=== PATIENT | female | born 1945 | race Caucasian/White ===

== ENCOUNTER 2017-10-08 13:52 | Inpatient (IN) ==
[2017-10-08] MEDS ORDERED: rOPINIRole 1 MG TABLET PO PRN (22:06)
[2017-10-08] MEDS: rOPINIRole 1 MG TABLET PO SCH (22:42)
[2017-10-09] MEDS: Acetaminophen 325 MG TABLET PO PRN (00:16)
[2017-10-09 05:58] LABS: Prothrombin Time 11.3 Seconds (9.4-12.1)
[2017-10-09 05:59] LABS: Basophils % 0.7 %; Eosinophils # 0.1 K/mcL (0.0-0.6); Hematocrit 44.1 % (35.3-44.9); Hemoglobin 14.6 g/dL (11.5-15.4); Immature Granulocytes % 0.2 % (0-4); Lymphocytes # 2.1 K/mcL (0.6-4.6); Mean Corpuscular HGB Conc 33.1 g/dL (31.6-35.5); Mean Corpuscular Hemoglobin 30.3 pg (28.0-33.3); Mean Corpuscular Volume 91.5 fL (83.0-100.0); Mean Platelet Volume 10.3 fL (9.4-12.4); Monocytes # 0.3 K/mcL (0.0-1.3); Monocytes % 7.4 %; Neutrophils # 1.8 K/mcL (1.6-8.9); Platelet Count 197 K/mcL (140-400); Red Blood Count 4.82 M/mcL (3.82-4.97); Red Cell Distribution Width 13.4 % (11.5-14.5); Segmented Neutrophils % 40.7 %
[2017-10-09 06:01] LABS: Activated Partial Thrombo Time 38.8 Seconds (26.0-36.0)
[2017-10-09 06:09] LABS: BUN/Creatinine Ratio 16 (6-26); Blood Urea Nitrogen 14 mg/dL (8-23); Calcium 9.3 mg/dL (8.6-10.3); Carbon Dioxide 30 mEq/L (23-29); Chloride 104 mEq/L (98-107); Glucose 101 mg/dL (70-105); Osmolality,Calculated 287 (280-300); Potassium 4.9 mEq/L (3.5-5.1); Sodium 138 mEq/L (136-145); eGFR For African Americans > 60 (> 60); eGFR For Non-African Americans > 60 (> 60)
[2017-10-09] MEDS: *HR* Heparin 5,000 UNIT/ML VIAL SQ SCH ×2 (06:13→16:46)
[2017-10-09] MEDS: Aspirin Enteric Coated 81 MG Tablet PO SCH (08:26)
[2017-10-09] MEDS: Metoprolol XL (24 HR) Succ 25 MG TAB.ER.24H PO SCH (08:26)
[2017-10-09] MEDS: Lisinopril 20 MG TABLET PO SCH (08:26)
--- NOTE | 2017-10-09 11:04 | Internal Med History&Physical ---
Date of Encounter: 10/09/17 Time of Encounter: 11:02 Assessment and Plan (1) CVA (cerebral vascular accident) Current visit: Yes Status: Acute slight left sided weakness. no new neurodeficits. PT/OT/ST to eval and treat. will follow progress. continue ASA and statin. f/u with neuro as scheduled. Qualifiers: CVA mechanism: thrombosis Precerebral and cerebral artery: middle cerebral artery Laterality of affected vessel: right Qualified Code(s): I63.311 - Cerebral infarction due to thrombosis of right middle cerebral artery (2) Hypothyroidism Current visit: Yes Status: Chronic stable. continue synthroid. Qualifiers: Hypothyroidism type: acquired Qualified Code(s): E03.9 - Hypothyroidism, unspecified (3) Hypertension Current visit: Yes Status: Chronic controlled with current meds. monitor BP. Qualifiers: Hypertension type: essential hypertension Qualified Code(s): I10 - Essential (primary) hypertension Internal Medicine - H&P: HPI Admitted From: Intrahospital Transfer Plans for Post Hospital Care: Home History of present illness: Ms. Vila is a 72 year old female admitted to inpatient rehab unit from [facility] s/p Right basal ganglia lacunar infarct. presented with left sided weakness, slurred speechand facial droop. has been improving and remains with slight left sided weakness and can notice speech slurrign when fatigue. denies TORRES, fever, chills, NVD, SOB or chest pain. ambulating in hallway with PT with walker. 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 to follow up with neuro interventionalist. past medical history includes: HTN, hypothyroidism and bladder cancer. Past Med Surg Social Fam HX - Past Medical History Medical history: cancer, hypertension, thyroid disease Additional medical history: cancer of bladder. anxiety. hemorrhoids. ibs. hypothyroidism Psychiatric history: anxiety - Past Surgical History Surgical History: hysterectomy Additional surgical history: removal carcinoma bladder - Social History Smoking Status: Never smoker Smokeless Tobacco Status: No Alcohol use: none Drug use: none - Family History Father Living Status: Age at : 68 Cause of : Prostate Cancer Hx Family Cardiac Disorders: Yes Hx Family Respiratory Disorders: No Hx Family Cancer: Yes Hx Family Endocrine Disorder: No Internal Medicine - H&P: Meds Aspirin Enteric Coated [Aspirin EC] 81 mg PO DAILY 10/06/17 [History] Levothyroxine [Synthroid] 50 mcg PO 0630 10/06/17 [History] Meclizine [Antivert] 12.5 mg PO TID PRN 10/06/17 [History] Metoprolol Succinate [Toprol Xl] 25 mg PO DAILY 10/06/17 [History] Paroxetine [Paxil] 20 mg PO DAILY 10/06/17 [History] rOPINIRole [Requip] 1 - 2 mg PO HS PRN 10/06/17 [History] Atorvastatin Calcium [Lipitor] 80 mg PO HS #30 tab 10/08/17 [Rx] Heparin 5,000 unit SQ Q12HCO vial 10/08/17 [Rx] Lisinopril [Zestril] 20 mg PO DAILY tablet 10/08/17 [Rx] 3 Allergy/AdvReac Type Severity Reaction Status Date / Time latex Allergy Hives Verified 10/06/17 13:01 quinidine Allergy Anaphylaxis Verified 10/06/17 13:01 All Systems PM: A 10-system review of systems was performed and is negative for pertinent findings except as documented above in the HPI. - Constitutional Constitutional: no chills, no fever(s), no night sweats - EENT Eyes: no change in vision, no discharge, no pain, no photophobia Ears: no ear discharge, no ear pain, no tinnitus Nose, mouth and throat: no dysphagia, no nasal discharge, no neck pain, no sore throat - Cardiovascular Cardiovascular ROS IM: no chest pain, no diaphoresis, no dyspnea, no lightheadedness, no palpitations, no syncope - Respiratory Respiratory: no cough, no dyspnea, no wheezing, no excessive phlegm production - Gastrointestinal Gastrointestinal: no abdominal pain, no diarrhea, no hematemesis, no hematochezia, no melena, no nausea, no vomiting - Genitourinary Genitourinary: no change in urinary stream, no dysuria, no flank pain, no hematuria - Musculoskeletal Musculoskeletal ROS IM: no numbness, no tingling - Integumentary Integumentary IM: no rash, no unusual bruising - Neurological Neurological ROS: no confusion, no convulsions, no focal weakness, no numbness, no tingling, no tremor(s) - Hematologic/Lymphatic Hematologic/Lymphatic: no easy bruising - Constitutional Vitals: Temp Pulse Resp BP Pulse Ox 97.4 F L 60 16 154/78 98 10/09/17 07:16 10/09/17 08:25 10/09/17 07:16 10/09/17 07:16 10/09/17 07:16 General appearance: Present: cooperative, A&O X 3, no acute distress, answers questions appropriately - Head Head exam: Present: atraumatic, normocephalic - Eye Eye exam: Present: PERRL, conjuntiva pink, sclera anicteric Pupils: Present: PERRL - Neck Neck exam general surgery: Present: supple, trachea midline. Absent: lymphadenopathy - Respiratory Respiratory exam: Present: CTAB. Absent: accessory muscle use, rales, rhonchi, wheezes - Cardiovascular Cardiovascular exam: Present: RRR, +S1, +S2. Absent: diastolic murmur, gallop, rubs, systolic murmur - GI/Abdominal GI/Abdominal exam: Present: normal bowel sounds, soft, no peritoneal signs. Absent: distended, tenderness - Extremities Exam Extremities exam: Present: warm, radial pulses palpable and symmetrical. Absent : calf tenderness, cyanotic, pedal edema Additional comments: slight left sided weakness. strength 4/5 both upper and lower left extremitites. - Neurological Exam Neurological exam: Present: CN II-XII intact, oriented X3, no focal deficits. Absent: pronater drift, facial droop, speech deficit - Skin Skin exam: Present: dry, intact Internal Med - H&P Results - Labs CBC & Chem 7: 10/09/17 05:40 10/09/17 05:40 Labs: Short CBC 10/09/17 Range/Units 05:40 WBC 4.4 (4.3-11.1) K/mcL Hgb 14.6 (11.5-15.4) g/dL Hct 44.1 (35.3-44.9) % Plt Count 197 (140-400) K/mcL Neutrophils # 1.8 (1.6-8.9) K/mcL BMP 10/09/17 05:40 Sodium 138 Potassium 4.9 Chloride 104 Carbon Dioxide 30 H BUN 14 Creatinine 0.86 Glucose 101 Calcium 9.3
[2017-10-09] MEDS: rOPINIRole 1 MG TABLET PO SCH (20:57)
[2017-10-10] MEDS: *HR* Heparin 5,000 UNIT/ML VIAL SQ SCH ×2 (06:23→16:16)
[2017-10-10] MEDS: Metoprolol XL (24 HR) Succ 25 MG TAB.ER.24H PO SCH (07:58)
[2017-10-10] MEDS: Lisinopril 20 MG TABLET PO SCH (07:58)
[2017-10-10] MEDS: Aspirin Enteric Coated 81 MG Tablet PO SCH (07:58)
--- NOTE | 2017-10-10 11:51 | Internal Med Progress Note ---
Date of Encounter: 10/10/17 Time of Encounter: 11:49 - Assessment and plan (1) CVA (cerebral vascular accident) Current Visit: Yes Status: Acute Assessment and plan: Improving. No new neurological deficits. Continue PT, ST, OT. Will follow progress. 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 Qualifiers: Hypothyroidism type: acquired Qualified Code(s): E03.9 - Hypothyroidism, unspecified (3) Hypertension Current Visit: Yes Status: Chronic Assessment and plan: Controlled with current medication. Monitor blood pressure. Qualifiers: Hypertension type: essential hypertension Qualified Code(s): I10 - Essential (primary) hypertension - Time Spent With Patient less than 15 minutes - Subjective Interval history: Participating well with therapy. Ambulating with Walker with standby assist with physical therapy in hallway. States only has left-sided weakness when fatigue. Denies any new complaints. Denies pain, fever, chills, nausea, vomitting, diarrhea, shortness of breath or chest pain. Maintaining appetite and hydration. - Constitutional Vitals: Temp Pulse Resp BP Pulse Ox 98.5 F 59 16 140/82 96 10/10/17 07:35 10/10/17 07:35 10/10/17 07:35 10/10/17 07:35 10/10/17 07:35 General appearance: Present: cooperative, A&O X 3, no acute distress, answers questions appropriately - Head Head exam: Present: atraumatic, normocephalic - Eye Eye exam: Present: PERRL, conjuntiva pink, sclera anicteric Pupils: Present: PERRL - Neck Neck exam general surgery: Present: supple, trachea midline. Absent: lymphadenopathy - Respiratory Respiratory exam: Present: CTAB. Absent: accessory muscle use, rales, rhonchi, wheezes - Cardiovascular Cardiovascular exam: Present: RRR, +S1, +S2. Absent: diastolic murmur, gallop, rubs, systolic murmur - GI/Abdominal GI/Abdominal exam: Present: normal bowel sounds, soft, no peritoneal signs. Absent: distended, tenderness - Extremities Exam Extremities exam: Present: warm, radial pulses palpable and symmetrical. Absent : calf tenderness, cyanotic, pedal edema - Neurological Exam Neurological exam: Present: CN II-XII intact, oriented X3, no focal deficits. Absent: pronater drift, facial droop, speech deficit - Skin Skin exam: Present: dry, intact Internal Medicine: Result - Labs CBC & Chem 7: 10/09/17 05:40 10/09/17 05:40 - ABG Interpretation ABG results: PT/INR, D-dimer PT 11.3 Seconds (9.4-12.1) 10/09/17 05:40 Consult Discharge Plan - Plan Referrals: Wiley Andres MD [Primary Care Provider] - Forrest Wallis MD [Partnered Physician] - (Neurologist. Web request made.)
[2017-10-10] MEDS: rOPINIRole 1 MG TABLET PO SCH (21:10)
[2017-10-11] MEDS: *HR* Heparin 5,000 UNIT/ML VIAL SQ SCH ×2 (05:41→19:59)
[2017-10-11] MEDS: Lisinopril 20 MG TABLET PO SCH (08:15)
[2017-10-11] MEDS: Aspirin Enteric Coated 81 MG Tablet PO SCH (08:15)
[2017-10-11] MEDS: Metoprolol XL (24 HR) Succ 25 MG TAB.ER.24H PO SCH (08:16)
[2017-10-11] MEDS: Acetaminophen 325 MG TABLET PO PRN (08:16)
--- NOTE | 2017-10-11 13:27 | Internal Med Progress Note ---
Date of Encounter: 10/11/17 Time of Encounter: 13:25 - Assessment and plan (1) CVA (cerebral vascular accident) Current Visit: Yes Status: Acute Assessment and plan: No acute issues. Neuro exam stable with patient stating that her decreased sensitivity she had to her tongue has improved. Continued slight left hemiparesis. Will continue with PT/OT. 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 Continue with current medications. Qualifiers: Hypertension type: essential hypertension Qualified Code(s): I10 - Essential (primary) hypertension - Time Spent With Patient less than 15 minutes - Subjective Interval history: Patient appears relaxed and denies any discomforts or SOB. Denies any acute neuro deficits and states that she feels that she has been having less tingling/ numbness noted to the left side of her tongue. States PT/OT has been progressing well. Denies any difficulty swallowing. - Constitutional Vitals: Temp Pulse Resp BP Pulse Ox 98.0 F 55 16 148/75 97 10/11/17 06:49 10/11/17 06:49 10/11/17 06:49 10/11/17 06:49 10/11/17 06:49 General appearance: Present: cooperative, A&O X 3, no acute distress, answers questions appropriately - Head Head exam: Present: atraumatic, normocephalic - Eye Eye exam: Present: PERRL, conjuntiva pink, sclera anicteric Pupils: Present: PERRL - Neck Neck exam general surgery: Present: supple, trachea midline. Absent: lymphadenopathy - Respiratory Respiratory exam: Present: CTAB. Absent: accessory muscle use, rales, rhonchi, wheezes - Cardiovascular Cardiovascular exam: Present: RRR, +S1, +S2. Absent: diastolic murmur, gallop, rubs, systolic murmur - GI/Abdominal GI/Abdominal exam: Present: normal bowel sounds, soft, no peritoneal signs. Absent: distended, tenderness - Extremities Exam Extremities exam: Present: warm, radial pulses palpable and symmetrical. Absent : calf tenderness, cyanotic, pedal edema - Neurological Exam Neurological exam: Present: CN II-XII intact, oriented X3, no focal deficits. Absent: pronater drift, facial droop, speech deficit Additional comments: slight left hemiparesis with LE +4/5 and RE 5/5. No other focal deficits noted. - Skin Skin exam: Present: dry, intact Internal Medicine: Result - Labs CBC & Chem 7: 10/09/17 05:40 10/09/17 05:40 - ABG Interpretation ABG results: PT/INR, D-dimer PT 11.3 Seconds (9.4-12.1) 10/09/17 05:40 Consult Discharge Plan - Plan Referrals: Wiley Andres MD [Primary Care Provider] - Forrest Wallis MD [Partnered Physician] - (Neurologist. Web request made.)
[2017-10-11] MEDS: rOPINIRole 1 MG TABLET PO SCH (20:02)
[2017-10-12] MEDS: *HR* Heparin 5,000 UNIT/ML VIAL SQ SCH ×2 (05:42→17:17)
[2017-10-12] MEDS: Acetaminophen 325 MG TABLET PO PRN (08:31)
[2017-10-12] MEDS: Metoprolol XL (24 HR) Succ 25 MG TAB.ER.24H PO SCH (08:32)
[2017-10-12] MEDS: Aspirin Enteric Coated 81 MG Tablet PO SCH (08:32)
[2017-10-12] MEDS: Lisinopril 20 MG TABLET PO SCH (08:32)
--- NOTE | 2017-10-12 16:02 | Internal Med Progress Note ---
Date of Encounter: 10/12/17 Time of Encounter: 15:57 - Assessment and plan (1) CVA (cerebral vascular accident) Current Visit: Yes Status: Acute Assessment and plan: Elevated blood pressure today; on repeat was normal Continue baby aspirin PT/OT Qualifiers: CVA mechanism: thrombosis Precerebral and cerebral artery: middle cerebral artery Laterality of affected vessel: right Qualified Code(s): I63.311 - Cerebral infarction due to thrombosis of right middle cerebral artery (2) Anxiety and depression Current Visit: Yes Status: Acute Assessment and plan: Patient on Paxil Described ongoing nervousness during the day; possibly confusing this with restless leg (3) Restless leg syndrome Current Visit: Yes Status: Acute Assessment and plan: Patient on Requip at 1 mg before bedtime Patient also has as needed Requip; this was discontinued; discussed with patient (4) Hypothyroidism Current Visit: Yes Status: Chronic Assessment and plan: Continue levothyroxine Qualifiers: Hypothyroidism type: acquired Qualified Code(s): E03.9 - Hypothyroidism, unspecified (5) Hypertension Current Visit: Yes Status: Chronic Assessment and plan: Controlled; has elevated morning blood pressure will continue to monitor for now If elevated still; suggest to increase lisinopril giving low heart rate Qualifiers: Hypertension type: essential hypertension Qualified Code(s): I10 - Essential (primary) hypertension (6) Hyperlipidemia Current Visit: No Status: Chronic Assessment and plan: Continue statins Qualifiers: Hyperlipidemia type: mixed hyperlipidemia Qualified Code(s): E78.2 - Mixed hyperlipidemia - Time Spent With Patient 25 - 35 minutes - Subjective Interval history: No acute events per nursing Patient is laying comfortably in bed. Denied any chest pains or shortness of breath. Described overall fatigue and attributed that to working with physical therapy. Denied any pain. Appetite and bowel movements okay - Constitutional Vitals: Temp Pulse Resp BP Pulse Ox 97.6 F 99 16 127/82 98 10/12/17 11:49 10/12/17 11:49 10/12/17 11:49 10/12/17 11:49 10/12/17 11:49 General appearance: Present: cooperative, A&O X 3, no acute distress, answers questions appropriately - Head Head exam: Present: atraumatic - ENT ENT exam: Present: normal exam - Neck Neck exam general surgery: Present: full ROM - Respiratory Respiratory exam: Present: CTAB. Absent: rhonchi, stridor, wheezes - Cardiovascular Cardiovascular exam: Present: RRR, +S1, +S2. Absent: irregular rhythm, JVD - GI/Abdominal GI/Abdominal exam: Present: soft. Absent: firm, guarding - Extremities Exam Extremities exam: Absent: pedal edema, tenderness, warm - Psychiatric Psychiatric exam: Present: normal affect, normal mood. Absent: agitated, anxious, depressed Internal Medicine: Result - Labs CBC & Chem 7: 10/09/17 05:40 10/09/17 05:40 - ABG Interpretation ABG results: PT/INR, D-dimer PT 11.3 Seconds (9.4-12.1) 10/09/17 05:40 Consult Discharge Plan - Plan Referrals: Wiley Andres MD [Primary Care Provider] - Forrest Wallis MD [Partnered Physician] - (Neurologist. Web request made.)
[2017-10-12] MEDS ORDERED: Azelastine 0.1% Nasal Spray 30 ML BOTTLE NS SCH (21:00)
[2017-10-12] MEDS: rOPINIRole 1 MG TABLET PO SCH (21:16)
[2017-10-13] MEDS: *HR* Heparin 5,000 UNIT/ML VIAL SQ SCH ×2 (06:52→17:57)
[2017-10-13] MEDS: Aspirin Enteric Coated 81 MG Tablet PO SCH (08:08)
[2017-10-13] MEDS: Metoprolol XL (24 HR) Succ 25 MG TAB.ER.24H PO SCH (08:09)
[2017-10-13] MEDS: Lisinopril 20 MG TABLET PO SCH (08:09)
--- NOTE | 2017-10-13 14:18 | Internal Med Progress Note ---
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 (2) Anxiety and depression Current Visit: Yes Status: Acute Assessment and plan: Patient on Paxil Described ongoing nervousness during the day; possibly confusing this with restless leg (3) Restless leg syndrome Current Visit: Yes Status: Acute Assessment and plan: Patient on Requip at 1 mg before bedtime PRN Requip was discontinued on 10/12/2017; discussed with the patient and she is in agreement (4) Hypothyroidism Current Visit: Yes Status: Chronic Assessment and plan: Continue levothyroxine Qualifiers: Hypothyroidism type: acquired Qualified Code(s): E03.9 - Hypothyroidism, unspecified (5) Hypertension Current Visit: Yes Status: Chronic Assessment and plan: Controlled; Continue lisinopril as well as Toprol Qualifiers: Hypertension type: essential hypertension Qualified Code(s): I10 - Essential (primary) hypertension (6) Hyperlipidemia Current Visit: No Status: Chronic Assessment and plan: Continue statins Qualifiers: Hyperlipidemia type: mixed hyperlipidemia Qualified Code(s): E78.2 - Mixed hyperlipidemia - Time Spent With Patient 25 - 35 minutes - Subjective Interval history: No acute events per nursing Patient is laying comfortably in bed. Denied any chest pains or shortness of breath. Fatigue improved from yesterday Appetite okay - Constitutional Vitals: Temp Pulse Resp BP Pulse Ox 97.8 F 60 16 143/66 96 10/13/17 07:00 10/13/17 07:00 10/13/17 07:00 10/13/17 07:00 10/13/17 07:00 General appearance: Present: cooperative, A&O X 3, no acute distress, answers questions appropriately - Head Head exam: Present: atraumatic, normocephalic - Eye Eye exam: Present: PERRL, conjuntiva pink, sclera anicteric Pupils: Present: PERRL - Neck Neck exam general surgery: Present: supple, trachea midline. Absent: lymphadenopathy - Respiratory Respiratory exam: Present: CTAB. Absent: accessory muscle use, rales, rhonchi, wheezes - Cardiovascular Cardiovascular exam: Present: RRR, +S1, +S2. Absent: diastolic murmur, gallop, rubs, systolic murmur - GI/Abdominal GI/Abdominal exam: Present: normal bowel sounds, soft, no peritoneal signs. Absent: distended, tenderness - Extremities Exam Extremities exam: Present: warm, radial pulses palpable and symmetrical. Absent : calf tenderness, cyanotic, pedal edema - Neurological Exam Neurological exam: Present: CN II-XII intact, oriented X3, no focal deficits. Absent: pronater drift, facial droop, speech deficit - Skin Skin exam: Present: dry, intact Internal Medicine: Result - Labs CBC & Chem 7: 10/09/17 05:40 10/09/17 05:40 - ABG Interpretation ABG results: PT/INR, D-dimer PT 11.3 Seconds (9.4-12.1) 10/09/17 05:40 Consult Discharge Plan - Plan Referrals: Wiley Andres MD [Primary Care Provider] - Forrest Wallis MD [Partnered Physician] - (Neurologist. Web request made.)
[2017-10-13] MEDS: rOPINIRole 1 MG TABLET PO SCH (20:54)
[2017-10-14] MEDS: *HR* Heparin 5,000 UNIT/ML VIAL SQ SCH ×2 (05:24→20:14)
[2017-10-14 05:51] LABS: Basophils # 0.1 K/mcL (0.0-0.2); Basophils % 0.7 %; Eosinophils # 0.2 K/mcL (0.0-0.6); Eosinophils % 3.2 %; Hematocrit 42.4 % (35.3-44.9); Immature Granulocytes % 0.1 % (0-4); Lymphocytes # 2.9 K/mcL (0.6-4.6); Lymphocytes % 41.5 %; Mean Corpuscular Hemoglobin 30.2 pg (28.0-33.3); Mean Corpuscular Volume 91.6 fL (83.0-100.0); Mean Platelet Volume 10.7 fL (9.4-12.4); Monocytes # 0.5 K/mcL (0.0-1.3); Monocytes % 7.2 %; Neutrophils # 3.3 K/mcL (1.6-8.9); Platelet Count 192 K/mcL (140-400); Red Blood Count 4.63 M/mcL (3.82-4.97); Red Cell Distribution Width 13.4 % (11.5-14.5); Segmented Neutrophils % 47.3 %
[2017-10-14 06:06] LABS: BUN/Creatinine Ratio 15 (6-26); Blood Urea Nitrogen 14 mg/dL (8-23); Calcium 9.5 mg/dL (8.6-10.3); Carbon Dioxide 32 mEq/L (23-29); Chloride 103 mEq/L (98-107); Glucose 93 mg/dL (70-105); Osmolality,Calculated 286 (280-300); Potassium 5.1 mEq/L (3.5-5.1); Sodium 138 mEq/L (136-145); eGFR For African Americans > 60 (> 60); eGFR For Non-African Americans 59 (> 60)
[2017-10-14] MEDS: Metoprolol XL (24 HR) Succ 25 MG TAB.ER.24H PO SCH (10:18)
[2017-10-14] MEDS: Aspirin Enteric Coated 81 MG Tablet PO SCH (10:19)
[2017-10-14] MEDS: Lisinopril 20 MG TABLET PO SCH (10:19)
[2017-10-14] MEDS: Acetaminophen 325 MG TABLET PO PRN (11:22)
--- NOTE | 2017-10-14 11:24 | Internal Med Progress Note ---
Date of Encounter: 10/14/17 Time of Encounter: 11:22 - Assessment and plan (1) CVA (cerebral vascular accident) Current Visit: Yes Status: Acute Assessment and plan: Improving. No new neurological deficits. Continue PT, ST, OT. Will follow progress. 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 Qualifiers: Hypothyroidism type: acquired Qualified Code(s): E03.9 - Hypothyroidism, unspecified (3) Hypertension Current Visit: Yes Status: Chronic Assessment and plan: Controlled with current medication ( lisinopril and toprol). Monitor blood pressure. Qualifiers: Hypertension type: essential hypertension Qualified Code(s): I10 - Essential (primary) hypertension - Time Spent With Patient less than 15 minutes - Subjective Interval history: Participating well with therapy. Ambulating with Walker. states sleeping well at night. no new neuro deficits. Denies any new complaints. Denies pain, fever , chills, nausea, vomitting, diarrhea, shortness of breath or chest pain. Maintaining appetite and hydration. - Constitutional Vitals: Temp Pulse Resp BP Pulse Ox 97.7 F 53 20 172/75 90 10/14/17 07:44 10/14/17 07:44 10/14/17 07:44 10/14/17 07:44 10/14/17 07:44 General appearance: Present: cooperative, A&O X 3, no acute distress, answers questions appropriately - Head Head exam: Present: atraumatic, normocephalic - Eye Eye exam: Present: PERRL, conjuntiva pink, sclera anicteric Pupils: Present: PERRL - Neck Neck exam general surgery: Present: supple, trachea midline. Absent: lymphadenopathy - Respiratory Respiratory exam: Present: CTAB. Absent: accessory muscle use, rales, rhonchi, wheezes - Cardiovascular Cardiovascular exam: Present: RRR, +S1, +S2. Absent: diastolic murmur, gallop, rubs, systolic murmur - GI/Abdominal GI/Abdominal exam: Present: normal bowel sounds, soft, no peritoneal signs. Absent: distended, tenderness - Extremities Exam Extremities exam: Present: warm, radial pulses palpable and symmetrical. Absent : calf tenderness, cyanotic, pedal edema - Neurological Exam Neurological exam: Present: CN II-XII intact, oriented X3, no focal deficits. Absent: pronater drift, facial droop, speech deficit - Skin Skin exam: Present: dry, intact Internal Medicine: Result - Labs CBC & Chem 7: 10/14/17 05:20 10/14/17 05:20 Labs: Short CBC 10/14/17 Range/Units 05:20 WBC 7.0 D (4.3-11.1) K/mcL Hgb 14.0 (11.5-15.4) g/dL Hct 42.4 (35.3-44.9) % Plt Count 192 (140-400) K/mcL Neutrophils # 3.3 (1.6-8.9) K/mcL BMP 10/14/17 05:20 Sodium 138 Potassium 5.1 Chloride 103 Carbon Dioxide 32 H BUN 14 Creatinine 0.93 Glucose 93 Calcium 9.5 - ABG Interpretation ABG results: PT/INR, D-dimer PT 11.3 Seconds (9.4-12.1) 10/09/17 05:40 Consult Discharge Plan - Plan Referrals: Wiley Andres MD [Primary Care Provider] - Forrest Wallis MD [Partnered Physician] - (Neurologist. Web request made.)
[2017-10-14] MEDS: rOPINIRole 1 MG TABLET PO SCH (20:32)
[2017-10-15] MEDS: *HR* Heparin 5,000 UNIT/ML VIAL SQ SCH ×2 (06:30→18:08)
[2017-10-15] MEDS: Acetaminophen 325 MG TABLET PO PRN (11:43)
[2017-10-15] MEDS: Metoprolol XL (24 HR) Succ 25 MG TAB.ER.24H PO SCH (11:43)
[2017-10-15] MEDS: Aspirin Enteric Coated 81 MG Tablet PO SCH (11:44)
[2017-10-15] MEDS: Lisinopril 20 MG TABLET PO SCH (11:44)
--- NOTE | 2017-10-15 12:31 | Internal Med Progress Note ---
Date of Encounter: 10/15/17 Time of Encounter: 12:30 - Assessment and plan (1) CVA (cerebral vascular accident) Current Visit: Yes Status: Acute Assessment and plan: No acute issues. Neuro exam stable with patient stating that her decreased sensitivity she had to her tongue has improved. Continued slight left hemiparesis. Patient continues on Lovenox until DC and will DC home with ASA. Planned DC . Will continue with PT/OT. 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 Continue with current medications. Qualifiers: Hypertension type: essential hypertension Qualified Code(s): I10 - Essential (primary) hypertension - Time Spent With Patient less than 15 minutes - Subjective Interval history: Patient appears relaxed and denies any discomforts or SOB. Denies any acute neuro deficits and states that she feels that she has been having less tingling/ numbness noted to the right side of her tongue. States PT/OT has been progressing well. Denies any difficulty swallowing. - Constitutional Vitals: Temp Pulse Resp BP Pulse Ox 97.6 F 55 18 175/86 96 10/15/17 07:00 10/15/17 07:00 10/15/17 07:00 10/15/17 07:00 10/15/17 07:00 General appearance: Present: cooperative, A&O X 3, no acute distress, answers questions appropriately - Head Head exam: Present: atraumatic, normocephalic - Eye Eye exam: Present: PERRL, conjuntiva pink, sclera anicteric Pupils: Present: PERRL - Neck Neck exam general surgery: Present: supple, trachea midline. Absent: lymphadenopathy - Respiratory Respiratory exam: Present: CTAB. Absent: accessory muscle use, rales, rhonchi, wheezes - Cardiovascular Cardiovascular exam: Present: RRR, +S1, +S2. Absent: diastolic murmur, gallop, rubs, systolic murmur - GI/Abdominal GI/Abdominal exam: Present: normal bowel sounds, soft, no peritoneal signs. Absent: distended, tenderness - Extremities Exam Extremities exam: Present: warm, radial pulses palpable and symmetrical. Absent : calf tenderness, cyanotic, pedal edema - Neurological Exam Neurological exam: Present: CN II-XII intact, oriented X3, no focal deficits. Absent: pronater drift, facial droop, speech deficit - Skin Skin exam: Present: dry, intact Internal Medicine: Result - Labs CBC & Chem 7: 10/14/17 05:20 10/14/17 05:20 - ABG Interpretation ABG results: PT/INR, D-dimer PT 11.3 Seconds (9.4-12.1) 10/09/17 05:40 Consult Discharge Plan - Plan Referrals: Wiley Andres MD [Primary Care Provider] - Forrest Wallis MD [Partnered Physician] - (Neurologist. Web request made.)
[2017-10-15] MEDS: rOPINIRole 1 MG TABLET PO SCH (19:45)
[2017-10-16] MEDS: *HR* Heparin 5,000 UNIT/ML VIAL SQ SCH ×2 (04:34→17:33)
[2017-10-16] MEDS: Acetaminophen 325 MG TABLET PO PRN (10:03)
[2017-10-16] MEDS: Metoprolol XL (24 HR) Succ 25 MG TAB.ER.24H PO SCH (10:04)
[2017-10-16] MEDS: amLODIPine 5 MG TABLET PO SCH (10:04)
[2017-10-16] MEDS: Aspirin Enteric Coated 81 MG Tablet PO SCH (10:04)
[2017-10-16] MEDS: Lisinopril 20 MG TABLET PO SCH (10:04)
--- NOTE | 2017-10-16 13:26 | Internal Med Progress Note ---
Date of Encounter: 10/16/17 Time of Encounter: 13:23 - Assessment and plan (1) CVA (cerebral vascular accident) Current Visit: Yes Status: Acute Assessment and plan: Improving. No new neurological deficits. Continue PT, ST, OT. Will follow progress. 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 Qualifiers: Hypothyroidism type: acquired Qualified Code(s): E03.9 - Hypothyroidism, unspecified (3) Hypertension Current Visit: Yes Status: Chronic Assessment and plan: Controlled with current medication ( lisinopril and toprol). Monitor blood pressure. Qualifiers: Hypertension type: essential hypertension Qualified Code(s): I10 - Essential (primary) hypertension - Time Spent With Patient less than 15 minutes - Subjective Interval history: Participating well with therapy. Ambulating with Walker. no new neuro deficits. Denies any new complaints. Denies pain, fever, chills, nausea, vomitting, diarrhea, shortness of breath or chest pain. Maintaining appetite and hydration. scheduled for discharge to home tomorrow with 24 hr supervision. lives with and son. - Constitutional Vitals: Temp Pulse Resp BP Pulse Ox 98.3 F 56 16 161/76 98 10/16/17 07:00 10/16/17 07:00 10/16/17 07:00 10/16/17 07:00 10/16/17 07:00 General appearance: Present: cooperative, A&O X 3, no acute distress, answers questions appropriately - Head Head exam: Present: atraumatic, normocephalic - Eye Eye exam: Present: PERRL, conjuntiva pink, sclera anicteric Pupils: Present: PERRL - Neck Neck exam general surgery: Present: supple, trachea midline. Absent: lymphadenopathy - Respiratory Respiratory exam: Present: CTAB. Absent: accessory muscle use, rales, rhonchi, wheezes - Cardiovascular Cardiovascular exam: Present: RRR, +S1, +S2. Absent: diastolic murmur, gallop, rubs, systolic murmur - GI/Abdominal GI/Abdominal exam: Present: normal bowel sounds, soft, no peritoneal signs. Absent: distended, tenderness - Extremities Exam Extremities exam: Present: warm, radial pulses palpable and symmetrical. Absent : calf tenderness, cyanotic, pedal edema - Neurological Exam Neurological exam: Present: CN II-XII intact, oriented X3, no focal deficits. Absent: pronater drift, facial droop, speech deficit - Skin Skin exam: Present: dry, intact Internal Medicine: Result - Labs CBC & Chem 7: 10/14/17 05:20 10/14/17 05:20 - ABG Interpretation ABG results: PT/INR, D-dimer PT 11.3 Seconds (9.4-12.1) 10/09/17 05:40 Consult Discharge Plan - Plan Referrals: Wiley Andres MD [Primary Care Provider] - Forrest Wallis MD [Partnered Physician] - (Neurologist. Web request made.)
[2017-10-16] MEDS: rOPINIRole 1 MG TABLET PO SCH (20:14)
[2017-10-16] MEDS: Fluconazole 100 MG TABLET PO SCH (21:28)
[2017-10-17] MEDS: *HR* Heparin 5,000 UNIT/ML VIAL SQ SCH (06:36)
[2017-10-17 07:40] VITALS: BP 171/79
[2017-10-17] MEDS: Aspirin Enteric Coated 81 MG Tablet PO SCH (08:20)
[2017-10-17] MEDS: amLODIPine 5 MG TABLET PO SCH (08:20)
[2017-10-17] MEDS: Fluconazole 100 MG TABLET PO SCH (08:21)
[2017-10-17] MEDS: Lisinopril 20 MG TABLET PO SCH (08:21)
[2017-10-17] MEDS: Metoprolol XL (24 HR) Succ 25 MG TAB.ER.24H PO SCH (08:21)
--- NOTE | 2017-10-17 11:00 | Physician Discharge Referral ---
Home Health/Hosp Referral Info Transfer to: Home Health Provider in Charge Post Discharge: PCP - Diagnosis (1) CVA (cerebral vascular accident) Priority: Primary Status: Acute (2) Hypothyroidism Priority: Secondary Status: Chronic (3) Hypertension Priority: Secondary Status: Chronic - Respiratory Orders Smoking Cessation: Smoking cessation has been advised. For more information, call the [place] Tobacco Quit Line at 8-465-SBQJ-NOW. - Diet/Nutrition Diet/Nutrition Orders: Regular - Activity Activity Orders: Walker - Services Needed Following services are medically necessary services: Nursing, Physical Therapy, Occupational Therapy - Transfer Medications Home Medications: Aspirin Enteric Coated [Aspirin EC] 81 mg PO DAILY 10/06/17 [History] Levothyroxine [Synthroid] 50 mcg PO 0630 10/06/17 [History] Meclizine [Antivert] 12.5 mg PO TID PRN 10/06/17 [History] Metoprolol Succinate [Toprol Xl] 25 mg PO DAILY 10/06/17 [History] Paroxetine [Paxil] 20 mg PO DAILY 10/06/17 [History] rOPINIRole [Requip] 1 - 2 mg PO HS PRN 10/06/17 [History] Atorvastatin Calcium [Lipitor] 80 mg PO HS #30 tab 10/08/17 [Rx] Heparin 5,000 unit SQ Q12HCO vial 10/08/17 [Rx] Lisinopril [Zestril] 20 mg PO DAILY tablet 10/08/17 [Rx] Allergies/Adverse Reactions: 3 Allergy/AdvReac Type Severity Reaction Status Date / Time latex Allergy Hives Verified 10/06/17 13:01 quinidine Allergy Anaphylaxis Verified 10/06/17 13:01 Certification: Further, I certify that my clinical findings support that this patient is homebound (i.e. absences from home require considerable and taxing effort and are for medical reasons or mu-ism services or infrequently or short duration when for other reasons) because: Homebound Reason: Patient requires assistance of a person or device to safely leave home, Leaving home requires considerable and taxing effort due to condition Attestation: My signature below is to certify that this patient is under my care and that I, or nurse practitioner, or a physician's religious assistant working with me, has a face-to -face encounter with this patient.
--- NOTE | 2017-10-17 11:05 | Discharge Summary ---
- NOTES TO OUTPATIENT PROVIDER Notes to Outpatient Provider: BP elevated at times. f/u with PCP Orders not resulted at time of discharge: Pending orders 10/21/17 04:00 BMP [Basic Metabolic Panel] MO CBC [Complete Blood Count] [HEME] MO 10/28/17 04:00 BMP [Basic Metabolic Panel] MO CBC [Complete Blood Count] [HEME] MO 11/04/17 04:00 BMP [Basic Metabolic Panel] MO CBC [Complete Blood Count] [HEME] MO 11/11/17 04:00 BMP [Basic Metabolic Panel] MO CBC [Complete Blood Count] [HEME] MO Date of Encounter: 10/17/17 Time of Encounter: 11:00 - Discharge Diagnosis (1) CVA (cerebral vascular accident) Priority: Primary Status: Acute Comments: will have home PT, OT. f/u with neuro ad PCP as scheduled. Qualifiers: CVA mechanism: thrombosis Precerebral and cerebral artery: middle cerebral artery Laterality of affected vessel: right Qualified Code(s): I63.311 - Cerebral infarction due to thrombosis of right middle cerebral artery (2) Hypothyroidism Priority: Secondary Status: Chronic Comments: continue current meds. follow up with PCP. Qualifiers: Hypothyroidism type: acquired Qualified Code(s): E03.9 - Hypothyroidism, unspecified (3) Hypertension Priority: Secondary Status: Chronic Comments: continue current meds. monitor BP. f/u with PCP. Qualifiers: Hypertension type: essential hypertension Qualified Code(s): I10 - Essential (primary) hypertension Hospital course: Ms. Vila is a 72 year old female discharging to home s/p CVA. completed goals with inpatient therapy. only slight left sided weakness when fatigued. ambulating ind with walker. discharging to home. denies new neuro deficits or complaints. will have home health PT, OT and nursing. Discharge discussed with: patient, nurse, social work - Time Spent with Patient Total time spent providing and/or coordinating discharge services: Less than 30 minutes - Discharge Medications Home Medications: Aspirin Enteric Coated [Aspirin EC] 81 mg PO DAILY 10/06/17 [History] Levothyroxine [Synthroid] 50 mcg PO 0630 10/06/17 [History] Meclizine [Antivert] 12.5 mg PO TID PRN 10/06/17 [History] Metoprolol Succinate [Toprol Xl] 25 mg PO DAILY 10/06/17 [History] Paroxetine [Paxil] 20 mg PO DAILY 10/06/17 [History] rOPINIRole [Requip] 1 - 2 mg PO HS PRN 10/06/17 [History] Atorvastatin Calcium [Lipitor] 80 mg PO HS #30 tab 10/08/17 [Rx] Lisinopril [Zestril] 20 mg PO DAILY tablet 10/08/17 [Rx] Acetaminophen [Tylenol] 650 mg PO Q4HR PRN tablet 10/17/17 [Rx] Fluconazole [Diflucan] 200 mg PO DAILY #2 tablet 10/17/17 [Rx] amLODIPine [Norvasc] 5 mg PO DAILY tablet 10/17/17 [Rx] Allergies/Adverse Reactions: 3 Allergy/AdvReac Type Severity Reaction Status Date / Time latex Allergy Hives Verified 10/06/17 13:01 quinidine Allergy Anaphylaxis Verified 10/06/17 13:01 Date of admission: 10/08/17 19:15 Primary care physician: Wiley Andres MD Consults: 10/08/17 22:10 Consult to Occupational Therapy [CONS] Routine Comment: Evaluate, develop and implement POC Reason for Consult: Eval and Treat Does patient have active BEDREST order?: No Is patient medically & hemodynamically stable?: Yes Patient assessed for mobility or mobilized this visit?: Yes Consult to Physical Medicine/Rehab [CONS] Routine Reason for Consult: Eval and Treat Call Completed: No Consult to Physical Therapy [CONS] Routine Comment: Evaluate, develop and implement POC Reason for Consult: Eval and Treat Does patient have active BEDREST order?: No Is patient medically & hemodynamically stable?: Yes Patient assessed for mobility or mobilized this visit?: Yes Consult to Recreational Therapy [CONS] Routine Comment: Evaluate, develop and implement POC Consult to Change Over [CONS] Routine Reason for SW Consult: Eval and Treat Consult to Speech Therapy [CONS] Routine Comment: Evaluate, develop and implement POC Reason for Consult: speech impairment Call Completed: Yes Discharging clinician: Wesley Bess Anticipated date of discharge: 10/17/17 - Constitutional Vitals: Temp Pulse Resp BP Pulse Ox 98.1 F 55 19 171/79 96 10/17/17 07:00 10/17/17 07:00 10/17/17 07:00 10/17/17 07:00 10/17/17 07:00 General appearance: Present: cooperative, A&O X 3, no acute distress, answers questions appropriately - Head Head exam: Present: atraumatic, normocephalic - Eye Eye exam: Present: PERRL, conjuntiva pink, sclera anicteric Pupils: Present: PERRL - Neck Neck exam general surgery: Present: supple, trachea midline. Absent: lymphadenopathy - Respiratory Respiratory exam: Present: CTAB. Absent: accessory muscle use, rales, rhonchi, wheezes - Cardiovascular Cardiovascular exam: Present: RRR, +S1, +S2. Absent: diastolic murmur, gallop, rubs, systolic murmur - GI/Abdominal GI/Abdominal exam: Present: normal bowel sounds, soft, no peritoneal signs. Absent: distended, tenderness - Extremities Exam Extremities exam: Present: warm, radial pulses palpable and symmetrical. Absent : calf tenderness, cyanotic, pedal edema - Neurological Exam Neurological exam: Present: CN II-XII intact, oriented X3, no focal deficits. Absent: pronater drift, facial droop, speech deficit - Skin Skin exam: Present: dry, intact - Patient Status Disposition: Home Health Service Condition: Good Functional capacity at discharge: uses cane/walker Overall status at discharge: patient is progressing back to baseline - Discharge Instructions Follow Up With: Wiley Andres MD [Primary Care Provider] - Forrest Wallis MD [Partnered Physician] - (Neurologist. Web request made.) - Diet and Activity Activity: as per physical therapy Diet: low fat, low cholesterol, low salt diet
[2017-10-17 13:18] LABS: BUN/Creatinine Ratio 13 (6-26); Blood Urea Nitrogen 11 mg/dL (8-23); Calcium 9.6 mg/dL (8.6-10.3); Carbon Dioxide 29 mEq/L (23-29); Chloride 99 mEq/L (98-107); Glucose 83 mg/dL (70-105); Osmolality,Calculated 283 (280-300); Potassium 4.2 mEq/L (3.5-5.1); Sodium 137 mEq/L (136-145); eGFR For African Americans > 60 (> 60); eGFR For Non-African Americans > 60 (> 60)
== END 2017-10-17 15:08 | disposition home health service (06) | DRG 57 ==
LOC: INPGRE 19:15